=== PATIENT | female | born 1960 | race Caucasian/White ===

== ENCOUNTER 2018-12-13 14:21 | Emergency (ER) | payer MEDICAID, MEDICARE ==
[~2018-12-13] VITALS: Ht 162.6 cm; Wt 70.0 kg
[~2018-12-13 14:21] MED LIST: NO ACTIVE MEDS
[2018-12-13] MEDS ORDERED: IBUPROFEN 600MG TABLET PO ONE (15:45)
[2018-12-13 15:48] VITALS: BP 111/65
== END 2018-12-13 18:00 | disposition home or self-care (01) ==
LOC: ER 14:21
DX: M25.511 Pain in right shoulder (principal); M25.551 Pain in right hip; M79.642 Pain in left hand; E78.00 Pure hypercholesterolemia, unspecified; W01.0XXA Fall on same level from slipping, tripping and stumbling without subsequent striking against object, initial encounter; Y93.89 Activity, other specified; Y92.89 Other specified places as the place of occurrence of the external cause; Y99.8 Other external cause status
CPT/HCPCS: 73030; 73130; 73502; 99283